=== PATIENT | female | born 1955 | race Caucasian/White ===

== ENCOUNTER → 2017-09-15 | Outpatient (CLI) | payer OTHER ==
[~2017-09-15] MED LIST: BUPR-83 PO; GLCPUNK; LXPUNK
--- NOTE | 2017-09-15 15:00 | DIAGNOSTIC IMAGING REPORT ---
THORACIC SPINE WITHOUT CLINICAL HISTORY: 62 years-old Female presenting with LIPOMA OF BACK. TECHNIQUE: Multisequence, multiplanar MR imaging of the thoracic spine was performed without the use of intravenous contrast. IV contrast: None. COMPARISON: 02/19/2015. FINDINGS: Localizer images: Unremarkable. Normal thoracic kyphosis. T1 hyperintense, T2 hyperintense, fat-containing lesion in the T6 vertebral body either benign hemangioma or lipoma. A fat poor hemangioma is evident in T11. Remaining vertebral body bone marrow is within normal limits. Vertebral bodies maintain normal height and alignment. Intervertebral disc desiccation evident at T10-11, where there is a small disc osteophyte complex. The remainder of the intervertebral disc spaces are preserved. At T10-11, mild effacement of the ventral thecal sac. No flattening of the spinal cord to suggest impingement. No neural foraminal narrowing. Thoracic spinal cord maintains normal morphology and signal intensity throughout. No paraspinal edema. No epidural collection. IMPRESSION: 1. 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 Fat poor hemangioma in T11. 2. Otherwise normal MR examination of the thoracic spine apart from minimal focal degenerative change at T10-11. Electronically signed by: Arnol Prado M.D. 09/15/2017 2:58 PM Dictated Date/Time: 09/15/2017 2:54 PM
== END | disposition home or self-care (01) ==
LOC: C.MRIBC 13:31
PROVIDERS: ATTEND Physician Assistant
DX: D17.1 Benign lipomatous neoplasm of skin and subcutaneous tissue of trunk (principal)